=== PATIENT | male | born 1960 | race Caucasian/White ===

== ENCOUNTER → 2021-08-01 | Outpatient (CLI) | payer BC ==
[2021-08-01 19:29] LABS: Basophils % (A) 1.6 %; Eosinophils # (A) 0.23 X 10*3/uL (0.04-0.35); Eosinophils % (A) 3.8 %; HCT 43.3 % (39.6-50.0); HGB 14.6 g/dL (13.0-17.0); Immature Grans, Automated 0.5 %; Lymphocytes # (A) 1.49 X 10*3/uL (0.90-5.00); Lymphocytes % (A) 24.5 %; MCH 31.4 pg (27.0-32.0); MCHC 33.7 g/dL (32.0-37.0); MCV 93.1 fL (80.0-97.0); Mean Platelet Volume 10.4 fL (9.5-12.2); Monocytes # (A) 0.41 X 10*3/uL (0.20-1.00); Monocytes % (A) 6.7 %; NRBC Per 100 WBC 0 /100 WBCS (0.0-0.0); Neutrophils # (A) 3.82 X 10*3/uL (1.80-7.70); Neutrophils % (A) 62.9 %; Platelet Count 203 X 10*3/uL (140-440); RBC 4.65 X 10*6/uL (4.40-5.60); RDW 12.7 % (11.5-14.5); WBC 6.08 X 10*3/uL (4.50-10.00)
[2021-08-01 19:47] LABS: Erythrocyte Sedimentation Rate 2 mm/Hr (0-20)
[2021-08-01 20:03] LABS: African American GFR (CKD) 75.7 (60.0-200.0); Albumin 4.5 g/dL (3.8-4.9); Albumin/Globulin Ratio 1.8 (1.60-3.17); Anion Gap 10.5 mmol/L (10.00-18.00); BUN/Creat Ratio 17.08 Ratio (12.00-20.00); Blood Urea Nitrogen 20.5 mg/dL (9.0-27.0); Calcium 9.8 mg/dL (8.7-10.3); Carbon Dioxide 26.5 mmol/L (20.0-27.5); Globulin 2.5 g/dL (1.6-3.3); Non-African American GFR(CKD) 65.3 (60.0-200.0); Potassium 4.4 mmol/L (3.5-5.5); Total Bilirubin 0.6 mg/dL (0.30-1.20)
--- NOTE | 2021-08-06 17:17 | PE ---
Nuclear medicine PET/CT HISTORY: Solitary pulmonary nodule, initial, mediastinal adenopathy, abnormal CT and chest x-ray Patient received 10.7 mCi F-18 FDG intravenously and delayed scanning was performed from the skull ba se to the mid thighs. A localization and attenuation correction CT scan was performed. Correlation to CT chest from outside institution 06/06/2021 Average mediastinal uptake is SUV 2.1, average liver uptake SUV is 2.4 Chest and neck: There is supraclavicular adenopathy on the left, short axis node measures 11 mm. SUV only 1.6 Patient's mediastinal and hilar adenopathy changes are again seen, there is associated uptak e SUV 3.4 within the hilar regions, 3 in the subcarinal location. No pleural pericardial effusion. No endobronchial lesion. No abnormal uptake associated with patient's described pulmonary nodules. ABDOMEN: There is no retroperitoneal adenopathy or ascites. No suspicious uptake. Uptake along the baldomero wel is felt likely to be physiologic. Osseous structures show no suspicious uptake. impression: Mediastinal and hilar adenopathy as previously described. Supraclavicular node. Findings may be due to patient's underlying sarcoid, consider follow-up
== END | disposition home or self-care (01) ==
LOC: LABWHC1 13:45
PROVIDERS: ATTEND Internal Medicine
DX: R91.8 Other nonspecific abnormal finding of lung field (principal); D86.9 Sarcoidosis, unspecified
CPT/HCPCS: 80053; 85652; 82164; 85025; 78815; 36415; A9552

== ENCOUNTER → 2022-03-27 | Outpatient (CLI) | payer BC ==
--- NOTE | 2022-03-27 11:51 | CT ---
EXAMINATION TYPE: CT angio chest CT DLP: 921 mGycm, Automated exposure control for dose reduction was used. DATE OF EXAM: 03/27/2022 11:05 AM COMPARISON: PET/CT 08/01/2021, CT chest 06/06/2021. CLINICAL INDICATION:Male, 61 years old with history of I71.40 AAA; TECHNIQUE/CONTRAST: CTA scan of the thorax is performed without and with IV Contrast, patient injected with 100 ml mL of Isovue 370, MIP images are created and reviewed. FINDINGS: Lungs/Pleura: No evidence of focal consolidation, pleural effusion or pneumothorax. Stable pulmonary nodules with examples including a right upper lobe 5 mm noncalcified nodule (series 9, image 53). No new or enlarging pulmonary nodules. Airway: Large airways are patent. Heart: Heart is within normal limits for size. No pericardial effusion. Coronary artery and aortic va lvular calcifications. Vasculature: Stable ascending aortic aneurysm measuring up to 4.1 cm. The aortic root measures 3.6 cm in diameter. The descending thoracic aorta measures 2.3 cm in diameter. Mild atherosclerotic calcifi cation of the aorta and its branches. Mediastinum: Stable mediastinal and bilateral hilar adenopathy with examples including a right peritr acheal lymph node measuring 1.8 cm short axis (series 8, image 59), a subcarinal lymph node measuring 1.6 mL short axis (series 8, image 86), a left hilar left measuring 2.4 cm short axis (series 8, jessie ge 82), and a right hilar lymph node measuring 1.9 cm short axis (series 8, image 92). Bilateral calc ified hilar lymph nodes redemonstrated. Musculoskeletal: No acute osseous abnormalities. No aggressive osseous lesion. Multilevel Schmorl's n odes. Soft Tissues: Unremarkable. Lower neck: No significant findings. Upper Abdomen: No significant findings. IMPRESSION: 1. Stable ascending aortic aneurysm measuring up to 4.1 cm. 2. Stable bilateral hilar and mediastinal adenopathy as demonstrated on prior PET/CT. Findings may re lated to sarcoidosis. 3. Stable pulmonary nodules. No new or enlarging pulmonary nodules.
== END | disposition home or self-care (01) ==
LOC: RADCTMAIN 08:38
PROVIDERS: ATTEND Surgery
DX: I71.21 Aneurysm of the ascending aorta, without rupture (principal); D86.9 Sarcoidosis, unspecified; R91.8 Other nonspecific abnormal finding of lung field; R59.0 Localized enlarged lymph nodes
CPT/HCPCS: 82565; 84520; 71275; 36415; Q9967

== ENCOUNTER → 2023-03-19 | Outpatient (CLI) | payer BC ==
[2023-03-19 11:07] LABS: African American GFR (CKD) 78 (>60 ml/min/1.73 sqM); Blood Urea Nitrogen 27 mg/dL (9-20); Non-African American GFR(CKD) 68 (>60 ml/min/1.73 sqM)
--- NOTE | 2023-03-19 12:03 | CT ---
Exam: CT Angiography of the Chest. Date: 03/19/2023. Comparison: 03/27/2022. History: Follow-up for aneurysm. Technique: CT examination of the chest was performed without and following the intravenous administra tion of 100 mL of Isovue-370. CT dose lowering techniques were used, to include: automated exposure c ontrol, adjustment for patient size, and/or use of iterative reconstruction. FINDINGS: Mediastinum and [place]: There is no axillary, mediastinal or hilar lymphadenopathy. Pleural and Pericardial spaces: There are no pleural or pericardial effusions. Upper Abdomen: The visualized upper abdomen is unremarkable. Cardiovascular: Dilation of the ascending thoracic aorta up to 4.1 cm is unchanged. No dissection. Pulmonary Artery: There are no filling defects in the pulmonary arteries. Lung Parenchyma and Airways: The lungs are clear. Bones: No fracture or aggressive osseous lesion. IMPRESSION: 1. Unchanged mild dilation of the ascending thoracic aorta up to 4.1 cm. 2. No evidence of aortic dissection. 3. No evidence of pneumonia, pleural or pericardial effusion. 4. Unchanged mediastinal or hilar adenopathy.
== END | disposition home or self-care (01) ==
LOC: RADCTMAIN 10:15
PROVIDERS: ATTEND Surgery
DX: I71.21 Aneurysm of the ascending aorta, without rupture (principal); R59.0 Localized enlarged lymph nodes
CPT/HCPCS: 82565; 84520; 71275; 36415; Q9967

== ENCOUNTER → 2024-03-20 | Outpatient (CLI) | payer BC ==
[2024-03-20 15:52] LABS: African American GFR (CKD) 76 (>60 ml/min/1.73 sqM); Blood Urea Nitrogen 18 mg/dL (9-20); Non-African American GFR(CKD) 65 (>60 ml/min/1.73 sqM)
--- NOTE | 2024-03-20 19:23 | CT ---
EXAMINATION TYPE: CT angio chest DATE OF EXAM: 03/20/2024 5:23 PM COMPARISON: 03/19/2023, 08/01/2021 CLINICAL INDICATION: Male, 63 years old with history of I71.20 THORACIC AORTIC ANEURYSM; f/u thoracic aortic aneurysm TECHNIQUE/CONTRAST: CTA scan of the thorax is performed without and with IV Contrast, patient injected with 100 mL of Iso angelic 370, MIP images are created and reviewed these are created on a separate workstation.. CT DLP: 1007.5 mGycm, Automated exposure control for dose reduction was used. FINDINGS: Lungs/Pleura: No evidence of focal consolidation, pleural effusion or pneumothorax. Airway: Large airways are patent. Heart: Heart is within normal limits for size. Atherosclerosis of the arterial vasculature. Vasculature: Stable mild ectasia of ascending thoracic aorta measuring up to 41 mm. No evidence for i ntramural hematoma on noncontrast imaging. No evidence of intimal flap to suggest dissection. No aneu rysm identified. Scattered atherosclerotic disease. There is no evidence for a filling defect within the pulmonary vasculature to suggest acute pulmonary embolism. The pulmonary artery is of normal siz e. Mediastinum: Mediastinal lymph nodes are again identified including right low paratracheal 14 mm as w ell as bilateral perihilar lymph nodes, AP window lymph nodes. Some of these are partially calcified Musculoskeletal: No acute osseous abnormalities Soft Tissues/lymph nodes: Unremarkable. Lower neck: Left lower neck lymph node measuring up to 14 mm in short axis is unchanged from prior. Upper Abdomen: No significant findings. IMPRESSION: 1. No evidence for aortic aneurysm, dissection or occlusion. No evidence for pulmonary embolus in the central pulmonary vasculature. 2. Stable mild ectasia of ascending thoracic aorta measuring up to 41 mm. 3. Moderate coronary artery atherosclerosis. 4. Mediastinal lymphadenopathy with some calcifications suggesting chronic granulomatous change. Ashley elate for sarcoidosis. [facility], , 03/20/2024 7:20 PM
== END | disposition home or self-care (01) ==
LOC: RADCTMAIN 14:47
PROVIDERS: ATTEND Surgery
DX: I71.20 Thoracic aortic aneurysm, without rupture, unspecified (principal); I25.10 Atherosclerotic heart disease of native coronary artery without angina pectoris; R59.0 Localized enlarged lymph nodes
CPT/HCPCS: 82565; 84520; 71275; 36415; Q9967

== ENCOUNTER → 2024-06-26 | Outpatient (CLI) | payer BC ==
--- NOTE | 2024-06-26 07:09 | MR ---
EXAMINATION TYPE: MR shoulder LT wo con DATE OF EXAM: 06/26/2024 6:45 AM COMPARISON: None. CLINICAL INDICATION: Male, 63 years old with history of M25.512 PAIN IN LEFT SHOULDER, Left shoulder pain, S/P fall 2 months ago. IV Contrast: cc (None if empty) TECHNIQUE: Multiplanar, multisequence imaging of the left shoulder is performed without contrast. FINDINGS: Rotator Cuff: Intact infraspinatus tendon. Increased signal in the distal supraspinatus tendon. Heter ogeneous subscapularis tendon with surrounding fluid. Rotator cuff muscle bulk is preserved. Acromioclavicular Joint: An os acromiale is seen. [id number] capsular hypertrophy is noted. [place] of underlying fat plane is present. Glenohumeral Joint: Small to moderate size joint effusion. No significant spurring. Narrowing is pres ent. Labrum: Heterogeneous increased signal superior labrum consistent with degenerative tear. Biceps Tendon: The long head of biceps is in normal location within bicipital groove. Bone marrow signal: No focal abnormal marrow signal is appreciated. Other: No additional significant abnormality is appreciated. IMPRESSION: 1. Some tendinosis of the subscapularis and supraspinatus tendons. No significant tearing seen. 2. Degenerative superior labral tear. 3. 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 [id number] degenerative changes are present as detailed above. [facility], , 06/26/2024 7:07 AM
== END | disposition home or self-care (01) ==
LOC: RADMRIMAIN 06:11
PROVIDERS: ATTEND Orthopaedic Surgery
DX: S43.432A Superior glenoid labrum lesion of left shoulder, initial encounter (principal); M75.02 Adhesive capsulitis of left shoulder; M67.814 Other specified disorders of tendon, left shoulder; M19.012 Primary osteoarthritis, left shoulder; W19.XXXA Unspecified fall, initial encounter